=== PATIENT | female | born 1940 | race Caucasian/White ===

== ENCOUNTER 2016-12-06 09:16 | Inpatient (IN) ==
[2016-12-06] MEDS ORDERED: *HR* Heparin 10,000 UNIT/10 ML VIAL ONE (10:20)
[2016-12-06] MEDS ORDERED: Nitroglycerin 1,000 MCG/10 ML VIAL IV ONE (10:20)
[2016-12-06] MEDS ORDERED: Heparin 1,000 UNITS/500 mL NS 0 ML ONE (10:20)
[2016-12-06] MEDS: 0.9 % Sodium Chloride 1,000 ML IVC SCH ×3 (10:33→16:54)
[2016-12-06 10:39] LABS: INR 1.1; Prothrombin Time 11.8 Seconds (9.4-12.1)
[2016-12-06] MEDS ORDERED: Heparin 1,000 UNITS/500 mL NS 500 ML ONE (10:50)
[2016-12-06] MEDS ORDERED: 0.9 % Sodium Chloride 1,000 ML ONE (10:50)
[2016-12-06] MEDS ORDERED: *HR* FentaNYL (PF) 100 MCG/2 ML VIAL ONE (10:59)
[2016-12-06] MEDS ORDERED: *HR* Midazolam HCl 2 MG/2 ML VIAL ONE (10:59)
--- NOTE | 2016-12-06 11:00 | Pre-Sedation Evaluation ---
Pre-sedation evaluation - Pre-sedation checklist Date of procedure: 12/06/16 Procedure: [facility] Recent Vitals: Last Vital Signs Temp 98.6 F 12/06/16 09:44 Pulse 71 12/06/16 09:44 Resp 16 12/06/16 09:44 BP 151/93 12/06/16 09:44 Pulse Ox 96 12/06/16 09:44 H&P (including ROS) documented in medical record: Yes Previous reaction to sedatives/anesthetics: No Dietary Status: NPO after Midnight Airway Assessment: Patient can open mouth completely, TMJ function normal, Micrognathia (under-bite, receding chin) absent, Neck with adequate range of motion Dentition: No loose teeth or bridges Possible difficult airway: No ASA Classification *see protocol: CLASS II-Mild systemic disease Plan of Care: Pt appropriate candidate for procedure/moderate/conscious sedation , Risks/benefits of procedure/sedation discussed w/ patient/family
--- NOTE | 2016-12-06 11:01 | History & Physical Report ---
Date of Encounter: 12/06/16 Time of Encounter: 11:00 24 Hour HP Update - Instructions Instructions: If the History and Physical is less than 30 days old and was completed prior to A.M. admission and or procedure and has NOT been updated on calendar day of procedure please complete this update prior to performing procedure. - Update Patient reports changes in Medical Condition: No Changes in examination, assessment, or condition: No Changes in Medication: No Preop tests/diagnostics Reviewed: Yes Surgery Remains Indicated: Yes Consent for Planned Operative Procedure(s) Verified: Yes - Pre-Operative Checklist Preoperative Checklist Indicated: No Prophylactic Antibiotic Ordered: No Home Medications Include Beta Anuradha: Yes Beta Anuradha Taken Today (Day of Surgery): Yes Beta Anuradha Taken Yesterday (Day Prior to Surgery): Yes Is VTE Prophylaxis Indicated?: NO
[2016-12-06] MEDS ORDERED: Nitroglycerin 0.4 MG TAB.SUBL SL PRN (12:01)
[2016-12-06] MEDS ORDERED: Ipratropium/Albuterol Neb 3 ML IH PRN (12:01)
[2016-12-06] MEDS ORDERED: D5% in Water 1,000 ML IVC PRN (12:04)
[2016-12-06] MEDS ORDERED: *HR* Dextrose 50 % in Water (Syg) 50 ML SYRINGE IVP PRN (12:04)
[2016-12-06] MEDS ORDERED: Dextrose Gel 15 GM PO PRN ×2 (12:04)
--- NOTE | 2016-12-06 14:01 | Cardiothoracic Consult Note ---
Date of Encounter: 12/06/16 Time of Encounter: 13:55 Assessment and Plan (1) CAD (coronary artery disease) Current Visit: No Status: Chronic The patient is a type II diabetic, hypertensive lady with known CAD, hypercholesterolemia, CKD, type IIIa, and chronic atrial fibrillation. Her cardiac history dates back to 2010 at which time she underwent LAD stent placement. She did well until July 2016 which began experiencing exertional, nonradiating substernal chest pain which has progressed significantly in both frequency and severity. Currently she has pain 2 or more times each day. The pain is alleviated with sublingual nitroglycerin; however, it takes up to 1 hour for the symptoms to resolve. She underwent a transthoracic echocardiogram which showed an LVEF 60-65% with severe pulmonary hypertension (RVSP greater than 80 mmHg). She underwent cardiac catheterization today and was found to have severe three-vessel CAD and an LVEF 60%. Most of these lesions are 90% or greater. With her severe pulmonary hypertension patient is not a candidate for CABG at [facility]. She will require transfer to a tertiary hospital with the capability of handling patients with severe pulmonary hypertension. The assessment and plan as outlined above was discussed with the patient and/or family members who expressed understanding and agreement. All questions were answered. Qualifiers: Coronary Disease-Associated Artery/Lesion type: viejas artery [place] vs. transplanted heart: viejas heart Associated angina: without angina Qualified Code(s): I25.10 - Atherosclerotic heart disease of viejas coronary artery without angina pectoris - History of Present Illness Consult date: 12/06/16 Requesting physician: Aimee Pyle Consult reason: CABG evaluation. Chief complaint: Exertional substernal chest pain. History of present illness: Ms. Renae is a 76 year old type II diabetic, hypertensive lady with known CAD, hypercholesterolemia, and chronic kidney disease, Stage IIIA. The patient was being evaluated for temporal artery biopsy and mentioned that she had exertional substernal chest pain for 3-4 months. Her cardiac history dates back to 2010 at which time she underwent percutaneous catheter intervention and LAD stent placement. She did well until July 2016 when she began noticing exertional , nonradiating substernal chest pain. The pain subsequently migrated to her left precordial region and for the last 2 weeks has been occurring several times each day. The pain occurs with both activity as well as at rest. She has not been awakened from sleep with the substernal chest pain. She has associated shortness of breath, but denies any diaphoresis, dizziness, heart palpitations, or syncope. The patient underwent a transthoracic echocardiogram which revealed an LVEF 55- 60% with normal LV size and function. She had a severely dilated left atrium, moderately dilated right atrium, moderate tricuspid regurgitation, and severe pulmonary hypertension with an estimated RVSP greater than 80 mmHg. The nuclear stress test revealed an LVEF 70% with reversible defects in the anterior and inferolateral wilson. Cardiac catheterization performed today revealed severe 3 vessel CAD and LVEF 50%. In particular, patient has a 25-30% distal left main lesion, a 90% mid LAD lesion, a 95% distal LAD lesion, a 90% proximal D1 lesion , a 90% proximal D2 lesion, a 90% proximal ramus lesion, a small nondominant LCx with diffuse 90-99% lesions in both the main artery and the OM branches, and a 99% mid RPLB lesion. The patient has been recommended for urgent CABG. Past Med Surg Social Fam HX - Past Medical History Medical history: atrial fibrillation, coronary artery disease, diabetes, fibromyalgia, hyperlipidemia, hypertension, renal disease ( Stage IIIA), other ( Pulmonary hypertension, severe) Psychiatric history: no psych history - Past Surgical History Surgical History: angioplasty/stent, appendectomy, orthopedic, other (Left total knee replacement, right total knee replacement), thyroidectomy - Social History Smoking Status: Never smoker Smokeless Tobacco Status: No Alcohol use: none Drug use: none Occupational status: retired Current living situation: Home - Independent Activity Level: Independent ambulation Recent Out of Country Travel Within the Last 8 Weeks: No Exposure or Possible Exposure to Illness During Travel: No - Family History Mother Adopted: Yes Family Member Ethnicity: Non- Living Status: Hx Family Cardiac Disorders: Yes (HD) Father Adopted: Yes Brother Adopted: Yes Family Member Ethnicity: Non- Living Status: Hx Family Endocrine Disorder: Yes (DM) Sister Adopted: Yes Family Member Ethnicity: Non- Living Status: Hx Family Cancer: Yes (Female, Brain) Medications and Allergies Allopurinol [Zyloprim 100 MG] 100 mg PO DAILY 05/06/15 [History] Aspirin [Adult Low Dose Aspirin EC] 81 mg PO DAILY 05/06/15 [History] Insulin Glargine,Hum.rec.anlog [Lantus Solostar] 25 unit SQ QAM 05/06/15 [ History] Levothyroxine [Synthroid] 50 mcg PO QAM 05/06/15 [History] Losartan Potassium [Cozaar] 100 mg PO DAILY 05/06/15 [History] Nitroglycerin [Nitrostat] 0.4 mg SL Q5M PRN 05/06/15 [History] Warfarin [Coumadin] 5 mg PO SUMOTUWEFRSA 05/06/15 [History] Albuterol Sulfate [Ventolin Hfa] 2 puff IH Q4H PRN 01/07/16 [History] Ipratropium/Albuterol Neb [Duoneb] 3 ml IH Q6H PRN 01/07/16 [History] Insulin Glargine,Hum.rec.anlog [Lantus Solostar] 20 unit SQ QPM 10/09/16 [ History] Naproxen Sodium [Aleve] 220 mg PO Q12H PRN 10/09/16 [History] Torsemide 5 mg PO DAILY 10/09/16 [History] Warfarin [Coumadin] 2.5 mg PO TH 10/09/16 [History] Amlodipine Besylate 10 mg PO DAILY 12/06/16 [History] Atenolol 100 mg PO DAILY 12/06/16 [History] Atorvastatin [Lipitor] 40 mg PO HS 12/06/16 [History] Isosorbide MONOnitrate (24 HR) [Imdur] 30 mg PO DAILY 12/06/16 [History] Isosorbide MONOnitrate (24 HR) [Imdur] 60 mg PO DAILY 12/06/16 [History] 3 Allergy/AdvReac Type Severity Reaction Status Date / Time cephalexin [From Keflex] Allergy Hives Verified 11/15/16 10:18 levofloxacin [From Levaquin] Allergy Anaphylaxis Verified 11/15/16 10:18 promethazine AdvReac See Verified 11/15/16 10:18 Comments All Systems Review: A 10-system review of systems was performed and is negative for pertinent findings except as documented above in the HPI. Physical Examination General: Conversant, No Apparent Distress HEENT: Atraumatic, Normocephaly, Trachea midline Neck: No JVD, Normal carotid pulses Cardiac: Normal S1 and S2, No Murmur, Other (Irregular rate and rhythm (atrial fibrillation)) Lungs: Normal Breath Sounds, No Wheeze, Rales, Rhonchi Neuro: Alert and responsive, No focal deficits noted, Motor nerves intact, Sensory nerves intact Vascular: Normal capillary refill Abdomen: Soft, Non-tender Skin: No rashes noted on visualized skin Musculoskeletal: No Chest Wall Tenderness Extremities: No Clubbing, No Cyanosis, Other (2+ pitting esema LLE below the knee) Results Lab Results, Last 24 hours 12/06/16 10:30 INR 1.1 Consult Discharge Plan - Plan Referrals: Aimee Mcpherson, SECURITY FLEX OFFICER [Primary Care Provider] -
--- NOTE | 2016-12-06 14:40 | Invasive Diagnostic Lab Proc ---
Name: Mario Renae Date of Study: 12/06/2016 Date: 1940 Ht: 64.0in Medical Record#: [id number] Age: 76 Wt: 217.00lb Gender: Female BSA: 2.03 Order #: [id number] BMI: 37.25 Physicians Procedure Physician: Aimee Pyle MD, FACC Referring MD: Referring MD: Staff Name Position Time In Malina, Valarie RT (R) Recorder Antonia Richey RN Pre-Op Nurse Liz Morocho RN Monitor 11:07 AM Avery Fine RN Hand Crocheter 11:07 AM Roslyn Franco RN Monitor 11:07 AM Marilyn Quesada RN Hand Crocheter 11:07 AM Angela Newby RT (R) Scrub 11:07 AM Indications Indication Abnormal Test - Stress Procedures Performed Procedure L HRT ARTERY/VENTRICLE ANGIO Pre-Procedure Checklist Informed consent is complete signed and on chart. H&P is on chart. ID band is on and ID verified with patient. Patient NPO for procedure The procedure was described for the patient and questions were answered. Blood Pressure: 151/93 ECG is on chart. Rhythm: NSR Plan of Care Patient will tolerate the procedure without complications. Adequate level of comfort will be maintained. Hemodynamics will remain stable Patient will recover from procedure without complications. Respiratory function will be maintained. Cardiac rhythm will remain stable. Patient temperature will be maintained. Patient and/or family have verbalized understanding of the procedure. Patient Education Chief Complaint/Reason for Test: Cardiac Cath Developmental Category: Geriatric (65+ years) Developmentally Appropriate for Age: Yes Learning Barriers: None Education Needs: Procedure Education Method: Verbal Information Taught: Cardiac Cath Educational Evaluation: Able to repeat information Intravenous Access Time IV Size Location DC'd Fluid/Drip Rate Units RN 10:30 AM Started with 20g 1 1/4" Lt Arm 0.9NaCl 100 ml/hr Antonia Richey RN Allergies levofloxacin cephalexin promethazine NO KNOWN ALLERGIES Vital Signs Time BP (mmHg) HR (bpm) O2 Sat. RR (bpm) LOC 09:59 AM 151 / 93 71 96 % 16 5 = Fully awake and oriented or at pre-proc level 11:08 AM / % 5 = Fully awake and oriented or at pre-proc level 11:10 AM 160 / 124 84 98 % 12 11:15 AM 173 / 99 72 100 % 16 11:20 AM 121 / 78 67 96 % 13 11:25 AM 114 / 70 65 96 % 18 11:29 AM 121 / 67 59 96 % 14 11:47 AM 135 / 76 58 94 % 15 12:02 PM 134 / 80 62 93 % 16 5 = Fully awake and oriented or at pre-proc level 12:17 PM 128 / 82 61 94 % 12 4 = Oriented but drowsy 12:29 PM 139 / 79 56 95 % 12 4 = Oriented but drowsy 12:47 PM 144 / 75 56 98 % 12 5 = Fully awake and oriented or at pre-proc level 01:00 PM 149 / 79 61 96 % 12 5 = Fully awake and oriented or at pre-proc level 01:30 PM 140 / 77 70 95 % 16 5 = Fully awake and oriented or at pre-proc level 02:00 PM 163 / 96 74 95 % 16 5 = Fully awake and oriented or at pre-proc level 02:30 PM 106 / 71 73 95 % 16 5 = Fully awake and oriented or at pre-proc level Procedural Medications Time Medication Dose Units Method Given By 11:08 AM Oxygen 2 L/min nasal cannula Avery Fine RN 11:17 AM Versed 2 mg Intravenous Avery Fine RN 11:17 AM Fentanyl 50 mcg Intravenous Avery Fine RN 11:19 AM Lidocaine 2% 19 ml Subcutaneous Aimee Pyle MD, [facility] ASA Classification: CLASS II- Mild systemic disease (i.e. well-controlled diabetes, hypertension, asthma, cigarette smoking) Joseph Score Preprocedure Postprocedure Activity 2- Moves 4 extremities sustained head lift Activity 2- Moves 4 extremities sustained head lift Circulation 2- SBP +/= 20 points of pre-anesthetic level Circulation 2- SBP +/= 20 points of pre-anesthetic level Consciousness 2- Awake and alert oriented x 3 Consciousness 2- Awake and alert oriented x 3 O2 Saturation 2- Able to maintain O2 satruation of 92% on room air O2 Saturation 2- Able to maintain O2 satruation of 92% on room air Respiratory 2- Able to deep breathe and cough well Respiratory 2- Able to deep breathe and cough well Total Score 10 Total Score 10 Contrast Agent: Isovue Diagnostic Contrast: 53 ml Total Contrast: 53 ml Fluoro Dose: 169 mGy Procedure Log Time Note Enter By 11:07 AM CathStat 11:07 AM Pt arrived to kiln labourer 2 at 11:07 [facility] 11: AM Liz Morocho RN Position: Monitor Time in: : [facility] 11: AM Avery Fine RN Position: Hand Crocheter [facility] 11: AM Roslyn Franco RN Position: Monitor Time in: : [facility] 11:07 AM Marilyn Quesada RN Position: Hand Crocheter Time in: : [facility] 11: AM Angela Newby RT (R) Position: Scrub [facility] 11: AM Patient charges- Angio tray pack, Navilyst 3mm J, Pulse Oximetry and ACIST tubing and transducer [facility] 11: AM IV Supplies used: J loop Angio Cath. [facility] 11: AM Case Delayed No [facility] : AM Hair removed from procedure site in holding area using clippers. Bilateral groin prepped with Chloraprep by Marilyn Quesada RN, safety strap applied then patient was draped. Skin intact. [facility] : AM Mumtaz paged/called :. [facility] : AM Mumtaz responded and notified patient is ready 11: [facility] 11: AM Physician arrived : [facility] 11: AM Meet and greet completed [facility] :08 AM Sign in performed according to hospital policy. [facility] 11:08 AM Procedure start 11:08 [facility] 11:08 AM Case Start :08 AM Time: :08 Oxygen on at 2 L/min per nasal cannula by Avery Fine RN [facility] :08 AM Time: :08 Patient comfortable and pain free: Yes [facility] :08 AM Time: :08LOC: 5 = Fully awake and oriented or at pre-proc level [facility] 11:09 AM Vitals capture started with the following parameters, Patient=Adult, Interval=5 min, Initial Bkileefj=915 mmHg, Deflation Rate=5 mmHg, Cuff placed on Right Arm 11:10 AM HR=84 bpm, MVFA=541/124 mmhg, SpO2=98.0 %, Resp=12 B/min, Comment=SR 11:12 AM ASA Class CLASS II- Mild systemic disease (i.e. well-controlled diabetes, hypertension, asthma, cigarette smoking) [facility] 11:13 AM Recorded ECG: HR=70 Condition=Condition 1 11:15 AM HR=72 bpm, HKTO=205/99 mmhg, IgS6=322.0 %, Resp=16 B/min, Comment=SR 11:17 AM Time: : Versed 2 mg Intravenous [facility] by [facility]very Fine [facility] AM Time: : Fentanyl 50 mcg Intravenous Given by Avery Fine [facility] 11:17 AM Time out performed according to hospital policy [facility] 11:19 AM Pressure channel 1 zeroed. 11:19 AM Time: : 19 ml Lidocaine 2% to right groin Subcutaneous Given by Aimee Pyle MD, [facility] 11:19 AM Access obtained by percutaneous puncture. 5Fr 10cm Terumo Alton sheath placed in right Femoral artery. [id number] [facility] 11:19 AM 0.035 145cm Navilyst 3mmJ wire [id number] [facility] 11:19 AM 5Fr FL 4 catheter inserted over the wire [facility] 11:20 AM HR=67 bpm, RJTU=213/78 mmhg, SpO2=96.0 %, Resp=13 B/min, Comment=SR 11:20 AM LCA angiography performed in multiple views. [facility] 11:21 AM Recorded Pressure: Ao, HR=69, Condition=Condition 1 (Aorta) Ao 154/100/124 11:21 AM Recorded Pressure: Ao, HR=70, Condition=Condition 1 (Aorta) Ao 147/106/125 11:22 AM Catheter removed [facility] 11:23 AM 5Fr FR 4 catheter inserted over the wire [facility] 11:23 AM Recorded Pressure: Ao, HR=68, Condition=Condition 1 (Aorta) Ao 134/89/108 11:23 AM Recorded Pressure: Ao, HR=73, Condition=Condition 1 (Aorta) Ao 143/102/121 11:24 AM RCA angiography performed in multiple views. [facility] 11:24 AM Catheter removed [facility] 11:24 AM 5Fr Pigtail catheter inserted over the wire [facility] 11:25 AM HR=65 bpm, UNDF=079/70 mmhg, SpO2=96.0 %, Resp=18 B/min 11:25 AM Catheter selectively placed in left ventricle [facility] 11:25 AM Bolus angiogram of left Ventricle complete: 8 ml/sec for a total of 24 mls [facility] 11:25 AM Pressure channel 1 zeroed. 11:25 AM Recorded Pressure: LV, HR=72, Condition=Condition 1 (Left Ventricle) LV 97/8/8 11:26 AM Recorded Pressure: LV, Ao, HR=64, Condition=Condition 1 (Left Ventricle) LV 87/-5/11, (Aorta) Ao 94/51/72 11:27 AM Catheter removed [facility] 11:27 AM Wire removed [facility] 11:28 AM Bolus angiogram of right Femoral complete: 4 ml/sec for a total of 7 mls [facility] 11:28 AM Procedure completed at 11:28 [facility] 11:29 AM Sign out completed: Radiation Dose 168.95 mGy Fluoro Time: 1.0 Isovue 370 - 200ml contrast 53 ml given by Aimee Pyle MD, [facility]. Complications: NoneCardiac Rehab Consult needed: YesConfirmed administered medications: Yes [facility] 11:29 AM Post ECG NSR [facility] 11:29 AM Post Blood Pressure 114/70 [facility] 11:29 AM Information taught Cardiac Cath [facility] 11:29 AM Education needs Plan of Care, Procedure, and Responsibilities of Patient in Care [facility] 11:29 AM Learning barriers :None [facility] 11:29 AM Education Methods Verbal [facility] 11:29 AM Education evaluation Able to repeat information [facility] 11:29 AM Site status No bleeding/hematoma - Rt Groin as reported by Angela Newby RT (R) at 11:29 [facility] 11:29 AM HR=59 bpm, IKVT=625/67 mmhg, SpO2=96.0 %, Resp=14 B/min 11:30 AM Arterial sheath pulled, Mynx closure device used and was Successful [id number] S/N. [facility] 11:31 AM [facility] 11:31 AM Plavix, Effient or Brilinta given No [facility] 11:31 AM Report given to Bertha SAMUEL Pt taken to Holding room Room #3. 11:31 [email or web address] 11:32 AM Family placed in consult room. [facility] 11:32 AM Complications: None [facility] 11:32 AM Fluoro Time: 1 [facility] 11:32 AM Isovue 370 - 200ml contrast 53 ml given by Aimee Pyle MD, [facility]. [facility] 11:32 AM Radiation Dose 168.95 mGy [facility] 11:33 AM 11:32 Post Pulses Bilateral DP & PT 1+ [facility] 11:38 AM Coronary Dominance: right [facility] 11:39 AM Lesion found in Proximal RCA. Pre Stenosis: 40 Pre [place] Flow: [facility] 11:39 AM Lesion found in Mid RCA. Pre Stenosis: 40 Pre [place] Flow: [facility]ers 11:39 AM Lesion found in Distal RCA. Pre Stenosis: 40 Pre [place] Flow: ts[facility]ers 11:39 AM Lesion found in LMCA. Pre Stenosis: 20 Pre [place] Flow: tsoummers 11:39 AM Lesion found in Proximal LAD. Pre Stenosis: 50 Pre [place] Flow: tsoummers 11:39 AM Lesion found in Mid LAD. Pre Stenosis: 99 Pre [place] Flow: tsoummers 11:39 AM Lesion found in Distal LAD. Pre Stenosis: 95 Pre [place] Flow: tsoummers 11:40 AM Lesion found in 1st Diagonal. Pre Stenosis: 70 Pre [place] Flow: tsoummers 11:40 AM Lesion found in 2nd Diagonal. Pre Stenosis: 90 Pre [place] Flow: tsoummers 11:40 AM Lesion found in Proximal Circumflex. Pre Stenosis: 80 Pre [place] Flow: tsoummers 11:40 AM Lesion found in Mid Circumflex. Pre Stenosis: 99 Pre [place] Flow: tsoummers 11:40 AM Lesion found in Distal Circumflex. Pre Stenosis: 99 Pre [place] Flow: tsoummers 11:41 AM Lesion found in 1st Marginal. Pre Stenosis: 99 Pre [place] Flow: tsoummers 11:41 AM Lesion found in Right PDA. Pre Stenosis: 30 Pre [place] Flow: tsoummers 11:41 AM Lesion found in 1st RPL. Pre Stenosis: 99 Pre [place] Flow: tsoummers 11:41 AM Lesion found in Ramus. Pre Stenosis: 99 Pre [place] Flow: tsoummers 11:41 AM Left Main Coronary Artery with 20% stenosis [facility] 11:42 AM Proximal Left Anterior Descending Coronary Artery with 50% stenosis. ts[facility]ers 11:42 AM Mid/Distal Left Anterior Descending Coronary Artery and diagonal branches with 99% stenosis. tsoummers 11:42 AM Circumflex, Obtuse Marginal, Left Posterior Descending, and Left Posterolateral Coronary Arteries with 99 % stenosis. tsoummers 11:42 AM Right Coronary, Right Posterior Descending Arteries with Right Posterolateral and Acute Marginal branches with 40 % stenosis. tsoummers 11:42 AM Ramus with 99% stenosis. tsoummers 11:45 AM Patient out of room: 11:45 [facility]ouers 12:03 PM Pt resting comfortably, no complaints of pain. Family at bedside. dspellshelby 01:11 PM Pt resting comfortably, eating lunch, family at the bedside. dspellshelby 01:[address] sanchez in to see patient mprater 02:00 PM report called to Elizabeth on 2N mprater 02:30 PM patient transferred to 2N mprater Complications Complication None Hemodynamics Pressures Site Systolic/A Wave Diastolic/V Wave Mean AO 154 100 124 AO 147 106 125 AO 134 89 108 AO 143 102 121 LV 97 8 8 LV 87 -5 11 AO 94 51 72 Post Procedure Information Blood Pressure: 114/70 mmHg Rhythm: NSR Post procedural instructions were given Closure Device Time Device Success/Fail 12/06/2016 11:30:00 AM MynxGrip Successful Site Checks Time Location Status Staff Sheath In? Note 11:29 AM Rt Groin No bleeding/hematoma Angela Newby RT (R) 11:47 AM Rt Groin No bleeding/ No Hematoma Sunday Arrieta RN 12:02 PM Rt Groin No bleeding/ No Hematoma Valarie Radford RT (R) 12:17 PM Rt Groin No bleeding/ No Hematoma Valarie Radford RT (R) 12:29 PM Rt Groin No bleeding/ No Hematoma Valarie Radford RT (R) 12:46 PM Rt Groin No bleeding/ No Hematoma Valarie Radford RT (R) 01:00 PM Rt Groin No bleeding/ No Hematoma Valarie Radford RT (R) 01:30 PM Rt Groin No bleeding/ No Hematoma Antonia Richey RN 02:00 PM Rt Groin No bleeding/ No Hematoma Kaiden, Antonia D RN 02:30 PM Rt Groin No bleeding/ No Hematoma Antonia Richey RN Pulses Time Site Pre-Procedure Post-Procedure Note 12/06/2016 9:59:00 AM Bilateral radial 1+ 12/06/2016 10:31:00 AM Bilateral DP & PT 1+ 11:32:00 AM Bilateral DP & PT 1+ 12/06/2016 11:47:00 AM Bilateral DP & PT 1+ 12/06/2016 12:30:00 PM Bilateral DP & PT 1+ 12/06/2016 1:00:00 PM Bilateral DP & PT 1+ 12/06/2016 2:00:00 PM Bilateral DP & PT 1+ 12/06/2016 2:30:00 PM Bilateral DP & PT 1+ Updated by Antonia Richey RN on 12/06/2016 2:35:21 PM Antonia Richey RN electronically signed on 12/06/2016 2:36:03 PM with status of Final
[2016-12-06] MEDS: Nitroglycerin 1 INCH/GM PACKET TP SCH (16:14)
[2016-12-06] MEDS ORDERED: *HR* Heparin 5,000 UNIT/ML VIAL IVP PRN ×2 (16:18)
[2016-12-06] MEDS ORDERED: *HR* Heparin 5,000 UNIT/ML VIAL IVP ONE (16:18)
--- NOTE | 2016-12-06 16:21 | Discharge Summary ---
Date of Encounter: 12/06/16 Time of Encounter: 16:20 - Discharge Diagnosis (1) CAD (coronary artery disease) Priority: Primary Status: Chronic Comments: Known history of CAD with recent abnormal stress test. Status post left heart catheterization today showing severe three-vessel CAD with recommendations for evaluation a CABG. Qualifiers: Coronary Disease-Associated Artery/Lesion type: [place] artery [place] vs. transplanted heart: [place] heart Associated angina: with unstable angina Qualified Code(s): I25.110 - Atherosclerotic heart disease of [place] coronary artery with unstable angina pectoris - Discharge Medications Home Medications: Albuterol Sulfate [Albuterol Inhaler] 2 puff IH Q4H PRN inhaler 12/06/16 [Rx] Allopurinol [Zyloprim 100 MG] 100 mg PO DAILY tablet 12/06/16 [Rx] Aspirin Enteric Coated [Aspirin EC] 81 mg PO DAILY tablet.dr 12/06/16 [Rx] Atenolol [Tenormin] 100 mg PO DAILY tablet 12/06/16 [Rx] Atorvastatin [Lipitor] 40 mg PO HS tablet 12/06/16 [Rx] Heparin 3,400 unit IVP Q6H PRN vial 12/06/16 [Rx] Heparin 6,900 unit IVP Q6HR PRN vial 12/06/16 [Rx] Insulin DETEMIR [Levemir] 20 unit SQ HS [id number] 12/06/16 [Rx] Insulin DETEMIR [Levemir] 25 unit SQ QAM [id number] 12/06/16 [Rx] Insulin LISPRO [HumaLOG] 0 units SQ TIDAC vial 12/06/16 [Rx] Ipratropium/Albuterol Neb [Duoneb] 3 ml IH Q6H PRN inhsol 12/06/16 [Rx] Isosorbide MONOnitrate (24 HR) [Imdur] 60 mg PO DAILY 12/06/16 [History] Levothyroxine [Synthroid] 50 mcg PO QAM tablet 12/06/16 [Rx] Nitroglycerin 0.4 mg SL Q5M PRN tab.subl 12/06/16 [Rx] Nitroglycerin 0.5 inch TP Q6HNTG packet 12/06/16 [Rx] Torsemide [Demadex] 5 mg PO DAILY tablet 12/06/16 [Rx] amLODIPine [Norvasc] 10 mg PO DAILY tablet 12/06/16 [Rx] Allergies/Adverse Reactions: 3 Allergy/AdvReac Type Severity Reaction Status Date / Time cephalexin [From Keflex] Allergy Hives Verified 11/15/16 10:18 levofloxacin [From Levaquin] Allergy Anaphylaxis Verified 11/15/16 10:18 promethazine AdvReac See Verified 11/15/16 10:18 Comments Procedures/tests Complete & Pending: Procedures Performed prior 72 hours Category Date Time Status CL Cardiac Catheterization [CL] Routine 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 Attendant 12/06/16 09:31 Completed ECG 12 lead ECG [ECG] AM 0600 Y 12/07/16 06:00 Ordered Date of admission: 12/06/16 Primary care physician: Aimee Mcpherson CNP Consults: 12/06/16 12:04 Consult to Cardiothoracic Surgery [CONS] Routine Consulting Provider: Cardiothoracic Surgery Melissa Reason for Consult: 3VCAD, eval for CABG Call Completed: Yes Discharging clinician: Ryan Ricketts Anticipated date of discharge: 12/06/16 (pending [facility] trasnfer for CABG) - Patient Status Disposition: Still a Patient Condition: Serious Functional capacity at discharge: bed bound (on bedrest) Overall status at discharge: patient is not back to baseline - Discharge Instructions Follow Up With: Aimee Mcpherson CNP [Primary Care Provider] - - Diet and Activity Diet: diabetic diet, low fat, low cholesterol, low salt diet - Hospital Course Hospital course: Ms. Renae is a 76 year old female with a relevant past medical history of CAD, DM 2, hypertension, hyperlipidemia, fibromyalgia, persistent atrial fibrillation on Coumadin therapy for anticoagulation. Patient with recent abnormal nuclear stress test showing small sized mild intensity reversible defect in the basal to mid inferior lateral segments suggestive of ischemia. Patient with exertional angina, dyspnea on exertion, increasing fatigue. Increased utilization of nitroglycerin. Preoperative evaluation for pending temporal artery biopsy. Underwent left heart catheterization today and found to have severe three-vessel CAD. CT surgery consulted with recommendations for transfer to tertiary center for CABG. Recent echo October 2016 showed EF 55-60 %, severely dilated left atrium, moderately dilated right atrium, indeterminate diastolic function, mild AR, mild MR, moderate TR, severe pulmonary hypertension with RVSP greater than 80 mmHg. Coumadin remains on hold. Started on heparin drip for anticoagulation for her atrial fibrillation. We'll hold ARB for possible CABG. Currently chest pain-free. Pending transfer to tertiary center for evaluation for CABG. Patient verbalized understanding and agreed with plan. All questions answered. Discussed and reviewed with Dr. Ivey. - Time Spent with Patient Total time spent providing and/or coordinating discharge services: Greater than 30 minutes Physical Examination Vital Signs, Last 4 Hours Pulse Resp BP Pulse Ox 12/06/16 14:52 76 18 166/106 98 General: Conversant, No Apparent Distress HEENT: Atraumatic, Normocephaly, Mucus Membranes Moist Neck: No JVD, Normal carotid pulses Cardiac: Reg Rate and Rhythm, Normal S1 and S2, No Murmur Lungs: Normal Breath Sounds, No Wheeze, Rales, Rhonchi Neuro: Alert and responsive, No focal deficits noted Abdomen: Soft, Non-Tender Skin: No rashes noted on visualized skin Musculoskeletal: No Chest Wall Tenderness Extremities: No Clubbing, No Cyanosis, No Edema, Normal Pulses - VTE Reasons for not Prescribing Prophylaxis: Not indicated-Anticoagulated or INR therapeutic
[2016-12-06] MEDS ORDERED: Heparin 25,000 UNIT/500 ML D5W 25,000 UNIT/500 ML MLS IVC SCH (16:30)
[2016-12-06 16:59] LABS: Hematocrit 38.9 % (35.3-44.9); Hemoglobin 13.2 g/dL (11.5-15.4); Mean Corpuscular HGB Conc 33.9 g/dL (31.6-35.5); Mean Corpuscular Hemoglobin 28.7 pg (28.0-33.3); Mean Corpuscular Volume 84.6 fL (83.0-100.0); Mean Platelet Volume 10.2 fL (9.4-12.4); Platelet Count 166 K/mcL (140-400); Red Cell Distribution Width 14.1 % (11.5-14.5)
[2016-12-06 17:09] LABS: INR 1.1; Prothrombin Time 12.2 Seconds (9.4-12.1)
[2016-12-06] MEDS: Insulin LISPRO 300 UNITS/3 ML VIAL SQ SCH (17:15)
[2016-12-06] MEDS ORDERED: Insulin DETEMIR 100 UNIT/ML X5UNITS SQ SCH (21:00)
[2016-12-07 01:42] LABS: Activated Partial Thrombo Time > 360.0 Seconds (26.0-36.0)
[2016-12-07 01:54] LABS: Heparin anti-factor XA UFH 1.11 IU/mL (0.30-0.70)
[2016-12-07] MEDS: 0.9 % Sodium Chloride 1,000 ML IVC SCH ×2 (02:52→11:16)
[2016-12-07] MEDS: Nitroglycerin 1 INCH/GM PACKET TP SCH ×2 (04:54→11:17)
[2016-12-07] MEDS: Insulin LISPRO 300 UNITS/3 ML VIAL SQ SCH ×2 (08:03→11:16)
--- NOTE | 2016-12-07 08:39 | Cardiology Progress Note ---
Date of Encounter: 12/07/16 Time of Encounter: 08:40 Assessment and Plan (1) CAD (coronary artery disease) Current Visit: No Status: Chronic Per Cardiology: Patient chest pain-free. Has nitroglycerin paste. On IV heparin drip. [facility] transfer center contacted and pending acceptance today for evaluation for CABG. Catheter film and echo report ready for transfer. All questions answered. Anticipate transfer today. Qualifiers: Coronary Disease-Associated Artery/Lesion type: [place] artery [place] vs. transplanted heart: [place] heart Associated angina: with unstable angina Qualified Code(s): I25.110 - Atherosclerotic heart disease of [place] coronary artery with unstable angina pectoris Discussion w patient/family: The assessment and plan as outlined above was discussed with the patient who expressed understanding and agreement. All questions were answered. Thank you for involving us in the care of your patient. Please call with any questions. Subjective Principal diagnosis: CAD Interval history: Patient denies any CP, SOB, Palps. Denies any R groin pain. Objective Vital Signs, Last 4 Hours Temp Pulse Resp BP Pulse Ox 12/07/16 08:17 97.7 F 74 18 157/101 97 12/07/16 04:45 50 General: Conversant, No Apparent Distress HEENT: Atraumatic, Normocephaly, Mucus Membranes Moist Neck: No JVD, Normal carotid pulses Cardiac: Reg Rate and Rhythm, Normal S1 and S2, No Murmur Lungs: Normal Breath Sounds, No Wheeze, Rales, Rhonchi Neuro: Alert and responsive, No focal deficits noted Abdomen: Soft, Non-Tender Skin: No rashes noted on visualized skin, Other (Right groin site dry and intact , no hematoma, no bleeding, no ecchymosis, right dorsal pedis and posterior tibial pulses 2+ palpable) Musculoskeletal: No Chest Wall Tenderness Extremities: No Clubbing, No Cyanosis, No Edema, Normal Pulses Results 12/06/16 16:32 Lab Results 12/06/16 12/06/16 12/06/16 10:30 16:32 16:32 WBC 7.9 Hgb 13.2 Hct 38.9 Plt Count 166 INR 1.1 1.1 APTT 37.0 H 12/07/16 00:36 WBC Hgb Hct Plt Count INR APTT > 360.0 H* D - Imaging and Cardiology Echo: report reviewed Cardiac cath: report reviewed - EKG Interpretation EKG results cardiology: other (A. fib on telemetry in the 60s to 70s) - VTE Reasons for not Prescribing Prophylaxis: Not indicated-Anticoagulated or INR therapeutic Consult Discharge Plan - Plan Referrals: Aimee Mcpherson CNP [Primary Care Provider] -
[2016-12-07] MEDS ORDERED: Aspirin Enteric Coated 81 MG Tablet PO SCH (09:00)
[2016-12-07] MEDS ORDERED: Insulin DETEMIR 100 UNIT/ML X5UNITS SQ SCH (09:00)
[2016-12-07] MEDS ORDERED: Torsemide 20 MG TABLET PO SCH (09:00)
[2016-12-07] MEDS ORDERED: amLODIPine 5 MG TABLET PO SCH (09:00)
[2016-12-07 11:05] LABS: Heparin anti-factor XA UFH 0.69 IU/mL (0.30-0.70)
[2016-12-07 11:07] VITALS: BP 161/79
== END 2016-12-07 12:18 | disposition short-term general hospital (02) | DRG 287 ==
LOC: INVDIALAB 09:16 → 2NNU 13:57
PROVIDERS: ADMIT Internal Medicine Interventional Cardiology; ATTEND Internal Medicine Interventional Cardiology

== ENCOUNTER 2018-10-01 04:09 | Observation (INO) ==
[2018-10-01] MEDS ORDERED: Aspirin 81 MG TAB.CHEW PO ONE (04:57)
--- NOTE | 2018-10-01 05:00 | Emergency Department Note ---
Disposition Clinical Impression: Coagulopathy Chest pain Qualifiers: Chest pain type: other chest pain Qualified Code(s): R07.89 - Other chest pain Disposition: Still a Patient Condition: Fair Referrals: Aimee Mcpherson CNP [Primary Care Provider] - Time of Disposition: 06:25 Chest Pain HPI - General Chief Complaint: ED Chest Pain Stated Complaint: CP Time Seen by Provider: 10/01/18 04:18 Source: patient, family Mode of arrival: ambulatory Limitations: no limitations Vital Signs Reviewed: Yes Nursing Notes Reviewed: Yes - History of Present Illness HPI Narrative: 78-year-old playing of chest pain presents to the emergency department. She states the pain is heavy but hurts worse when she takes a deep breath. She also states that does go through to her back. She does have a significant history of coronary artery disease with also a coronary bypass graft 3 vessels. The heart catheter in 09/07/2018 which demonstrated significant stenosis in her [place] vessels however the 3 vessels that were bypassed are patent and open. The MARTINEZ is also patent. However, her [place] vessels do show significant stenosis she denies any shortness of breath but it does hurt to take a deep breath. She artery took baby aspirin this morning. She took one extra 1 around 2 AM and 2 prior to that. Pt complaint: chest pain Time: 02:00 Duration: constant Pain Location: substernal Severity: moderate Severity scale (1-10): 7 Quality: sharp, dull Pain Radiation: back Improves with: nitroglycerin Worsens with: inspiration Associated symptoms: Denies: nausea, vomiting, diaphoresis, dyspnea, sense of impending doom, fever, cough Treatments prior to arrival chest pain: aspirin - Related Data On Oral Contraceptives: No Home Medications Medication Instructions Recorded Confirmed Isosorbide MONOnitrate (24 HR) 60 mg PO DAILY 12/06/16 10/01/18 [Imdur] Losartan Potassium [Cozaar] 100 mg PO DAILY 01/24/17 10/01/18 Metoprolol [Lopressor] 50 mg PO BID 01/24/17 10/01/18 Aspirin Enteric Coated [Aspirin EC] 2 tab PO DAILY 09/07/18 10/01/18 Cholecalciferol (Vitamin D3) 5,000 unit PO DAILY 09/07/18 10/01/18 [Vitamin D3] Insulin DETEMIR [Levemir] 23 unit SQ BID 09/07/18 10/01/18 Torsemide [Demadex] 10 mg PO DAILY 09/07/18 10/01/18 Warfarin [Coumadin] 5 mg PO AD 09/07/18 10/01/18 Previous Rx's Medication Instructions Recorded Albuterol Sulfate [Proventil 2 puff IH Q4H PRN inhaler 12/06/16 Inhaler] Allopurinol [Zyloprim 100 MG] 100 mg PO DAILY tablet 12/06/16 Atenolol [Tenormin] 100 mg PO DAILY tablet 12/06/16 Atorvastatin [Lipitor] 40 mg PO HS tablet 12/06/16 Levothyroxine [Synthroid] 50 mcg PO QAM tablet 12/06/16 Nitroglycerin 0.4 mg SL Q5M PRN tab.subl 12/06/16 amLODIPine [Norvasc] 10 mg PO DAILY tablet 12/06/16 Ranolazine [Ranexa] 500 mg PO BID #60 tab.er.12h 09/07/18 Allergies Allergy/AdvReac Type Severity Reaction Status Date / Time cephalexin [From Keflex] Allergy Hives Verified 10/01/18 04:47 levofloxacin [From Levaquin] Allergy Anaphylaxis Verified 10/01/18 04:47 promethazine AdvReac See Verified 10/01/18 04:47 Comments All systems ED: reviewed and negative except as stated. Constitutional: Denies: fever, chills, weakness, weight change Eyes: Denies: eye pain, eye discharge, vision change ENT ED: Denies: ear pain, throat pain, dental pain, hearing loss, epistaxis, congestion, dysphagia Cardiovascular: Reports: chest pain. Denies: palpitations, dyspnea on exertion, edema, syncope Respiratory: Reports: dyspnea. Denies: cough, wheezes, hemoptysis, stridor Gastrointestinal: Denies: abdominal pain, nausea, vomiting, diarrhea, constipation, hematemesis, melena, hematochezia Genitourinary: Denies: dysuria, frequency, hematuria, discharge Musculoskeletal: Denies: back pain, neck pain, arthralgia, myalgia Integumentary: Denies: rash, abrasion, lesions Neurological: Denies: headache, weakness, numbness, paresthesias, confusion, abnormal gait, vertigo Psychiatric: Denies: anxiety, depression, suicidal thoughts, homicidal thoughts, auditory hallucinations, visual hallucinations Endocrine: Denies: fatigue Hematological/Lymphatic: Denies: easy bleeding, easy bruising Allergic/Immunologic: Denies: facial swelling, urticaria Chest Pain PMH - Past Medical History Medical history: Reports: atrial fibrillation, diabetes, fibromyalgia, hyperlipidemia, hypertension, thyroid disease Surgical history: Reports: angioplasty/stent, appendectomy, orthopedic, other, thyroidectomy Psychiatric history: Reports: no psych history STUDENT DEVELOPMENT SPECIALIST history: Reports: no STUDENT DEVELOPMENT SPECIALIST history - Social History Smoking Status: Never smoker Alcohol use: Reports: none Drug use: Reports: none Physical Exam - General Limitations: no limitations General appearance: alert - Head Head exam: atraumatic, normocephalic, normal inspection - Eye Eye exam: Present: normal appearance, PERRL, EOMI - ENT ENT exam: normal exam, normal oropharynx, mucous membranes moist - Neck Neck exam: Present: normal inspection, full ROM, trachea midline. Absent: tenderness - Chest Chest inspection: Present: normal inspection, symmetric chest wall rise. Absent: tenderness - Respiratory Respiratory exam: Present: normal lung sounds bilaterally, other (But does hurt to take a deep breath). Absent: respiratory distress, wheezes - Cardiovascular Cardiovascular exam: Present: regular rate, normal rhythm, normal heart sounds - Abdominal Exam Abdominal exam: Present: soft, Non-Tender, normal bowel sounds. Absent: te nderness, distention, guarding, rebound, rigidity - Extremities Exam Extremities exam: Present: normal inspection, full ROM, normal capillary refill. Absent: tenderness, pedal edema - Back Exam Back exam: Present: normal inspection, full ROM. Absent: tenderness, CVA tenderness (R), CVA tenderness (L) - Neurological Exam Neurological exam: Present: alert, oriented X3, CN II-XII intact - Psychiatric Psychiatric exam: Present: normal affect, normal mood - Skin Skin exam: Present: warm, dry, intact, normal color Course Course Narrative: Patient was placed in examination room. History of physical was obtained. Patient did have an EKG upon arrival. Although there are minimal ST changes in V1 and V2 these are unchanged from previous EKGs. Patient has undertaken one aspirin this morning along with her usual 2. However give 2 more aspirin. She has not missed any doses of her new medications. She is currently taken Coumadin and Ranexa. I will give her nitroglycerin sublingual. And then reevaluate. However, with her pain in her chest going into her back she states this is a little different than her normal pain that she has. She has not had any recent hospitalizations or any longer since travel or car rides. Going to obtain a CTA of her chest to further evaluate for pulmonary embolism/dissection - Reevaluation(s) Reevaluation #1: Patient is feeling better after nitroglycerin. Time: 05:05 Reevaluation #2: Patient was pain-free after 2 nitroglycerin. And no longer hurts for her to take a deep breath. Time: 06:24 - Consultations Consultation #1: I contacted Dr. Linder and he would like forced to call back once the CT scan has been resulted. But he finds no reason not to admit her. For chest pain rule out. Time: 06:25 Vital Signs Temperature 98.7 F 10/01/18 04:26 Pulse Rate 81 10/01/18 04:26 Respiratory Rate 20 10/01/18 04:26 Blood Pressure 144/59 10/01/18 04:26 O2 Sat by Pulse Oximetry 95 10/01/18 04:26 Temperature 98.7 F 10/01/18 04:26 Pulse Rate 84 10/01/18 06:03 Respiratory Rate 20 10/01/18 06:03 Blood Pressure 116/56 10/01/18 06:03 O2 Sat by Pulse Oximetry 97 10/01/18 06:03 Oxygen Delivery Oxygen Delivery Room Air Chest Pain - MDM Narrative Medical decision making narrative: Patient will be signed out to Dr. Singh and he will contact the hospitalist for admission. - Medical Records Medical records reviewed: Yes I reviewed the patient's medical records. - Lab Data Lab results reviewed: Yes I reviewed the patient's lab results. Result diagrams: 10/01/18 04:59 10/01/18 04:59 Lab Results 10/01/18 10/01/18 10/01/18 Range/Units 04:59 04:59 04:59 WBC 12.7 H (4.3-11.1) K/mcL RBC 4.53 (3.82-4.97) M/mcL Hgb 12.8 (11.5-15.4) g/dL Hct 38.3 (35.3-44.9) % MCV 84.5 (83.0-100.0) fL MCH 28.3 (28.0-33.3) pg MCHC 33.4 (31.6-35.5) g/dL RDW 13.9 (11.5-14.5) % Plt Count 188 (140-400) K/mcL MPV 9.9 (9.4-12.4) fL Immature Gran % 0.4 (0-4) % Seg Neutrophils % 81.6 % Lymphocytes % 7.9 % Monocytes % 9.0 % Eosinophils % 0.6 % Basophils % 0.5 % Neutrophils # 10.4 H (1.6-8.9) K/mcL Lymphocytes # 1.0 (0.6-4.6) K/mcL Monocytes # 1.1 (0.0-1.3) K/mcL Eosinophils # 0.1 (0.0-0.6) K/mcL Basophils # 0.1 (0.0-0.2) K/mcL PT 51.5 H* (9.4-12.1) Seconds INR 4.5 H* APTT 56.4 H (26.0-36.0) Seconds Sodium (136-145) mEq/L Potassium (3.5-5.1) mEq/L Chloride (98-107) mEq/L Carbon Dioxide (23-29) mEq/L BUN (8-23) mg/dL Creatinine (0.60-1.20) mg/dL Est GFR ( Amer) (> 60) Est GFR (Non-Af Amer) (> 60) BUN/Creatinine Ratio (6-26) Glucose (70-105) mg/dL Calculated Osmolality (280-300) Calcium (8.6-10.3) mg/dL Total Bilirubin (0.3-1.0) mg/dL Direct Bilirubin (0.0-0.2) mg/dL Indirect Bilirubin (0.0-1.2) mg/dL AST (13-39) Units/L ALT (7-52) Units/L Alkaline Phosphatase (34-104) Units/L Troponin I (< 0.04) ng/mL B-Natriuretic Peptide 165 H (Less than 100) pg/mL Serum Total Protein (6.4-8.9) g/dL Albumin (3.5-5.7) g/dL Globulin (2.4-3.5) g/dL Albumin/Globulin Ratio (1.1-2.2) Lipase (11-82) Units/L 10/01/18 Range/Units 04:59 WBC (4.3-11.1) K/mcL RBC (3.82-4.97) M/mcL Hgb (11.5-15.4) g/dL Hct (35.3-44.9) % MCV (83.0-100.0) fL MCH (28.0-33.3) pg MCHC (31.6-35.5) g/dL RDW (11.5-14.5) % Plt Count (140-400) K/mcL MPV (9.4-12.4) fL Immature Gran % (0-4) % Seg Neutrophils % % Lymphocytes % % Monocytes % % Eosinophils % % Basophils % % Neutrophils # (1.6-8.9) K/mcL Lymphocytes # (0.6-4.6) K/mcL Monocytes # (0.0-1.3) K/mcL Eosinophils # (0.0-0.6) K/mcL Basophils # (0.0-0.2) K/mcL PT (9.4-12.1) Seconds INR APTT (26.0-36.0) Seconds Sodium 137 (136-145) mEq/L Potassium 3.6 (3.5-5.1) mEq/L Chloride 103 (98-107) mEq/L Carbon Dioxide 20 L (23-29) mEq/L BUN 14 (8-23) mg/dL Creatinine 0.76 (0.60-1.20) mg/dL Est GFR ( Amer) > 60 (> 60) Est GFR (Non-Af Amer) > 60 (> 60) BUN/Creatinine Ratio 18 (6-26) Glucose 169 H (70-105) mg/dL Calculated Osmolality 288 (280-300) Calcium 10.0 (8.6-10.3) mg/dL Total Bilirubin 1.1 H (0.3-1.0) mg/dL Direct Bilirubin 0.3 H (0.0-0.2) mg/dL Indirect Bilirubin 0.8 (0.0-1.2) mg/dL AST 15 (13-39) Units/L ALT 10 (7-52) Units/L Alkaline Phosphatase 99 (34-104) Units/L Troponin I < 0.03 (< 0.04) ng/mL B-Natriuretic Peptide (Less than 100) pg/mL Serum Total Protein 7.0 (6.4-8.9) g/dL Albumin 4.0 (3.5-5.7) g/dL Globulin 3.0 (2.4-3.5) g/dL Albumin/Globulin Ratio 1.3 (1.1-2.2) Lipase 19 (11-82) Units/L - Radiology Data Radiology results reviewed: Yes I reviewed the patient's radiology results. EXAMINATION: ONE XRAY VIEW OF THE CHEST 10/01/2018 5:26 am COMPARISON: 10/09/2016 HISTORY: ORDERING SYSTEM PROVIDED HISTORY: chest pain FINDINGS: Stable cardiomegaly and calcification aortic knob. Interval postsurgical changes of CABG. No consolidation, sizable effusion or pneumothorax. Osseous structures grossly intact. XR/XR chest 1V portable IMPRESSION: No acute process. D/ / Ej Carreon MD / Ej Carreon MD Interpreting Provider: Ej Carreon MD - EKG Data EKG attestation: Yes I reviewed and interpreted this EKG. EKG results narrative: EKG is reviewed and read by me shows a H of fibrillation with a heart rate of 85 bpm, normal axis, no acute ST elevations however there are chronic elevations in V1 and V2. No significant acute changes from 10/19/2016. EKG #2 taken at 0432 Reviewed interpreted by me. Shows a heart rate of 81 with atrial fibrillation with controlled ventricular rate. Normal axis, no acute ST elevations or depressions to suggest infarction or ischemia. Heart Score - Score History: Moderately Suspicious EKG: Normal Age: Greater than 65 Risk Factors: Equal/Greater than 3 risk factor or history of atherosclerotic disease Troponin: Less than normal limit HEART Score Total: 5 Critical Care Time Critical Care Time: Yes Total Critical Care Time: 30 Attestation: The high probability of a clinically significant, sudden or life threatening deterioration of the patient's condition required my full and direct attention, intervention and personal management.
[2018-10-01 05:14] LABS: Basophils # 0.1 K/mcL (0.0-0.2); Basophils % 0.5 %; Eosinophils # 0.1 K/mcL (0.0-0.6); Eosinophils % 0.6 %; Hematocrit 38.3 % (35.3-44.9); Hemoglobin 12.8 g/dL (11.5-15.4); Immature Granulocytes % 0.4 % (0-4); Lymphocytes % 7.9 %; Mean Corpuscular HGB Conc 33.4 g/dL (31.6-35.5); Mean Corpuscular Hemoglobin 28.3 pg (28.0-33.3); Mean Corpuscular Volume 84.5 fL (83.0-100.0); Mean Platelet Volume 9.9 fL (9.4-12.4); Monocytes # 1.1 K/mcL (0.0-1.3); Neutrophils # 10.4 K/mcL (1.6-8.9); Platelet Count 188 K/mcL (140-400); Red Blood Count 4.53 M/mcL (3.82-4.97); Red Cell Distribution Width 13.9 % (11.5-14.5); Segmented Neutrophils % 81.6 %; White Blood Count 12.7 K/mcL (4.3-11.1)
[2018-10-01] MEDS: Nitroglycerin 0.4 MG TAB.SUBL SL SCH ×3 (05:15→06:04)
[2018-10-01 05:23] LABS: INR 4.5; Prothrombin Time 51.5 Seconds (9.4-12.1)
[2018-10-01 05:24] LABS: Activated Partial Thrombo Time 56.4 Seconds (26.0-36.0)
[2018-10-01 05:32] LABS: Alanine Aminotransferase 10 Units/L (7-52); Albumin/Globulin Ratio 1.3 (1.1-2.2); Alkaline Phosphatase 99 Units/L (34-104); Aspartate Amino Transferase 15 Units/L (13-39); BUN/Creatinine Ratio 18 (6-26); Bilirubin,Direct 0.3 mg/dL (0.0-0.2); Bilirubin,Indirect 0.8 mg/dL (0.0-1.2); Bilirubin,Total 1.1 mg/dL (0.3-1.0); Blood Urea Nitrogen 14 mg/dL (8-23); Carbon Dioxide 20 mEq/L (23-29); Chloride 103 mEq/L (98-107); Glucose 169 mg/dL (70-105); Lipase 19 Units/L (11-82); Osmolality,Calculated 288 (280-300); Potassium 3.6 mEq/L (3.5-5.1); Sodium 137 mEq/L (136-145); Troponin I < 0.03 ng/mL (< 0.04); eGFR For African Americans > 60 (> 60); eGFR For Non-African Americans > 60 (> 60)
[2018-10-01] MEDS ORDERED: Isovue-370 500 ML BOTTLE IVP ONE (05:50)
--- NOTE | 2018-10-01 09:21 | Internal Med History&Physical ---
Date of Encounter: 10/01/18 Time of Encounter: 09:21 Internal Medicine - H&P: HPI Chief complaint: Chest pain History of present illness: Ms. Renae is a 78 year old female with a past medical history of atrial fibrillation, diabetes, fibromyalgia, hyperlipidemia, hypertension, thyroid disease presented to the hospital with chest pain, pressure in character, exacerbated by deep breath and was no alleviating factor, the patient stated that the pain is radiating to her back. The patient had extensive cardiac history status post coronary bypass graft and heart catheterization and September 2018 that revealed significant stenosis in her [place] vessels however the 3 ve ssels that were bypassed are patent and open. The patient was evaluated by the ER staff cardiac enzymes first set was was no significant abnormalities and EKG revealed ischemic ST-T wave changes. Her INR was super therapeutic, however there was still signs of bleeding, The patient was admitted for further evaluation Past Med Surg Social Fam HX - Past Medical History Medical history: atrial fibrillation, diabetes, fibromyalgia, hyperlipidemia, hypertension, thyroid disease Psychiatric history: no psych history - Past Surgical History Surgical History: angioplasty/stent, appendectomy, orthopedic, other, thyroidectomy Additional surgical history: bilateral knee replacements - Social History Smoking Status: Never smoker Smokeless Tobacco Status: No Alcohol use: none Drug use: none - Family History Mother Adopted: Yes Family Member Ethnicity: Non- Living Status: Hx Family Cardiac Disorders: Yes (HD) Father Adopted: Yes Brother Adopted: Yes Family Member Ethnicity: Non- Living Status: Hx Family Endocrine Disorder: Yes (DM) Sister Adopted: Yes Family Member Ethnicity: Non- Living Status: Hx Family Cancer: Yes (Female, Brain) Internal Medicine - H&P: Meds Allopurinol [Zyloprim 100 MG] 100 mg PO DAILY tablet 12/06/16 [Rx] Atorvastatin [Lipitor] 40 mg PO HS tablet 12/06/16 [Rx] Isosorbide MONOnitrate (24 HR) [Imdur] 60 mg PO DAILY 12/06/16 [History] Levothyroxine [Synthroid] 50 mcg PO QAM tablet 12/06/16 [Rx] Nitroglycerin 0.4 mg SL Q5M PRN tab.subl 12/06/16 [Rx] amLODIPine [Norvasc] 10 mg PO DAILY tablet 12/06/16 [Rx] Losartan Potassium [Cozaar] 100 mg PO DAILY 01/24/17 [History] Metoprolol [Lopressor] 50 mg PO BID 01/24/17 [History] Aspirin Enteric Coated [Aspirin EC] 2 tab PO DAILY 09/07/18 [History] Cholecalciferol (Vitamin D3) [Vitamin D3] 5,000 unit PO DAILY 09/07/18 [History] Ranolazine [Ranexa] 500 mg PO BID #60 tab.er.12h 09/07/18 [Rx] Torsemide [Demadex] 10 mg PO DAILY 09/07/18 [History] Warfarin [Coumadin] 5 mg PO SUTUTHSA 09/07/18 [History] Albuterol Sulfate [Proventil Inhaler] 2 puff IH Q4H PRN 10/01/18 [History] Insulin Glargine,Hum.rec.anlog [Lantus Solostar] 23 unit SQ BID 10/01/18 [History] Warfarin Sodium 2.5 mg PO MOWEFR 10/01/18 [History] Allergy/AdvReac Type Severity Reaction Status Date / Time cephalexin [From Keflex] Allergy Hives Verified 10/01/18 04:47 levofloxacin [From Levaquin] Allergy Anaphylaxis Verified 10/01/18 04:47 promethazine AdvReac See Verified 10/01/18 04:47 Comments All Systems PM: A 10-system review of systems was performed and is negative for pertinent findings except as documented above in the HPI. - Constitutional Vitals: Temp Pulse Resp BP Pulse Ox 99.5 F 69 17 145/75 94 10/01/18 09:01 10/01/18 09:01 10/01/18 09:01 10/01/18 09:01 10/01/18 09:01 General appearance: Present: A&O X 3 Exam: . - Neck Neck exam general surgery: Present: supple, trachea midline. Absent: lymphadenopathy - Cardiovascular Cardiovascular exam: Present: RRR, +S1, +S2. Absent: diastolic murmur, gallop, rubs, systolic murmur - GI/Abdominal GI/Abdominal exam: Present: normal bowel sounds, soft, no peritoneal signs. Absent: distended, tenderness - Extremities Exam Extremities exam: Present: warm, radial pulses palpable and symmetrical. Abs ent: calf tenderness, cyanotic, pedal edema Internal Med - H&P Results - Labs CBC & Chem 7: 10/02/18 00:26 10/02/18 00:26 Labs: Short CBC 10/01/18 Range/Units 04:59 WBC 12.7 H (4.3-11.1) K/mcL Hgb 12.8 (11.5-15.4) g/dL Hct 38.3 (35.3-44.9) % Plt Count 188 (140-400) K/mcL Neutrophils # 10.4 H (1.6-8.9) K/mcL BMP 10/01/18 04:59 Sodium 137 Potassium 3.6 Chloride 103 Carbon Dioxide 20 L BUN 14 Creatinine 0.76 Glucose 169 H Calcium 10.0 Cardiac Enzymes 10/01/18 Range/Units 04:59 Troponin I < 0.03 (< 0.04) ng/mL Liver Function 10/01/18 Range/Units 04:59 Total Bilirubin 1.1 H (0.3-1.0) mg/dL Direct Bilirubin 0.3 H (0.0-0.2) mg/dL AST 15 (13-39) Units/L ALT 10 (7-52) Units/L Alkaline Phosphatase 99 (34-104) Units/L Albumin 4.0 (3.5-5.7) g/dL - Impressions ITS Impressions Chest X-Ray 10/01/18 04:22 IMPRESSION: No acute process. D/ / Ej Carreon MD / Ej Carreon MD Interpreting Provider: Ej Carreon MD Chest CTA 10/01/18 05:50 IMPRESSION: No evidence of pulmonary embolism or acute pulmonary abnormality. Cardiomegaly noted with atherosclerotic vascular calcifications and previous median sternotomy. Other incidental findings include bibasilar atelectasis in the lungs and a small hiatal hernia. D/ / John Rivas MD / John Rivas MD Interpreting Provider: John Rivas MD - Assessment and Plan (1) Chest pain Status: Acute Assessment and plan: The patient had extensive cardiac history status post coronary bypass graft and heart catheterization and September 2018 that revealed significant stenosis in her [place] vessels however the 3 vessels that were bypassed are patent and open. The patient was evaluated by the ER staff cardiac enzymes first set was was no significant abnormalities and EKG revealed ischemic ST-T wave changes. Qualifiers: Chest pain type: other chest pain Qualified Code(s): R07.89 - Other chest pain; R07.8 - Other chest pain (2) Coagulopathy Status: Acute Assessment and plan: no evidence of bleeding, repeat INR. Hold Coumadin for now and consult pharmacy for further dosing. (3) Atrial fibrillation Status: Chronic Assessment and plan: Patient in chronic anticoagulation with warfarin, her INR is over therapeutic was holding for now will follow-up and INR. Qualifiers: Atrial fibrillation type: chronic Qualified Code(s): I48.2 - Chronic atrial fibrillation (4) CAD (coronary artery disease) Status: Chronic Assessment and plan: Continue home medication Qualifiers: Coronary Disease-Associated Artery/Lesion type: [place] artery [place] vs. transplanted heart: [place] heart Associated angina: with unstable angina Qualified Code(s): I25.110 - Atherosclerotic heart disease of [place] coronary artery with unstable angina pectoris (5) Diabetes Status: Chronic Assessment and plan: We will start the patient and insulin sliding scale with moderate coverage Qualifiers: Diabetes mellitus type: type 2 Diabetes mellitus continuous churn buttermaker insulin use: with continuous churn buttermaker use Diabetes mellitus complication status: without complication Qualified Code(s): E11.9 - Type 2 diabetes mellitus without complications; 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.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) use of insulin (6) HTN (hypertension) Status: Chronic Assessment and plan: We will continue home medication, continue to monitor blood pressure while inpatient and adjust regimen accordingly Qualifiers: Hypertension type: essential hypertension Qualified Code(s): I10 - Essential (primary) hypertension (7) Hyperlipidemia Status: Chronic Assessment and plan: We will continue home statin Qualifiers: Hyperlipidemia type: pure hypercholesterolemia Qualified Code(s): E78.00 - Pure hypercholesterolemia, unspecified; E78.0 - Pure hypercholesterolemia - Time Spent With Patient Total time spent is greater than 50% in coordination of care (as documented) at patient's floor/unit and/or counseling patient:
[2018-10-01] MEDS ORDERED: Naloxone 0.4 MG/ML INJ IVP PRN (10:45)
[2018-10-01] MEDS ORDERED: Ondansetron 4 MG/2 ML VIAL IVP PRN (10:45)
--- NOTE | 2018-10-01 11:42 | Electrocardiograph Report ---
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
[2018-10-01] MEDS ORDERED: Nitroglycerin 0.4 MG TAB.SUBL SL PRN (14:57)
[2018-10-01] MEDS ORDERED: Dextrose Gel 15 GM/37.5 ML TUBE PO PRN ×2 (16:59)
[2018-10-01] MEDS ORDERED: D5% in Water 1,000 ML IVC PRN (16:59)
[2018-10-01] MEDS ORDERED: *HR* Dextrose 50 % in Water (Syg) 50 ML SYRINGE IVP PRN (16:59)
[2018-10-01] MEDS ORDERED: Warfarin perPT PO PRN (18:00)
[2018-10-01 18:07] LABS: Prothrombin Time 59.8 Seconds (9.4-12.1)
[2018-10-01 18:08] LABS: INR 5.3
[2018-10-01 18:24] LABS: Estimated Average Glucose 177 mg/dl
[2018-10-01] MEDS ORDERED: Insulin LISPRO 300 UNITS/3 ML VIAL SQ SCH (21:00)
[2018-10-01] MEDS: Ranolazine 500 MG TAB.ER.12H PO SCH (21:35)
[2018-10-02 00:55] LABS: Basophils # 0.1 K/mcL (0.0-0.2); Basophils % 0.5 %; Eosinophils # 0.1 K/mcL (0.0-0.6); Hematocrit 36.1 % (35.3-44.9); Immature Granulocytes % 0.4 % (0-4); Lymphocytes # 1.7 K/mcL (0.6-4.6); Lymphocytes % 17.6 %; Mean Corpuscular HGB Conc 33.2 g/dL (31.6-35.5); Mean Corpuscular Volume 84.3 fL (83.0-100.0); Mean Platelet Volume 10.3 fL (9.4-12.4); Monocytes # 1.1 K/mcL (0.0-1.3); Monocytes % 11.3 %; Neutrophils # 6.8 K/mcL (1.6-8.9); Platelet Count 167 K/mcL (140-400); Red Blood Count 4.28 M/mcL (3.82-4.97); Red Cell Distribution Width 14.1 % (11.5-14.5); Segmented Neutrophils % 69.2 %; White Blood Count 9.8 K/mcL (4.3-11.1)
[2018-10-02 01:06] LABS: INR 4.9; Prothrombin Time 55.7 Seconds (9.4-12.1)
[2018-10-02 01:17] LABS: Alanine Aminotransferase 8 Units/L (7-52); Albumin 3.4 g/dL (3.5-5.7); Albumin/Globulin Ratio 1.2 (1.1-2.2); Alkaline Phosphatase 79 Units/L (34-104); Aspartate Amino Transferase 12 Units/L (13-39); BUN/Creatinine Ratio 15 (6-26); Bilirubin,Total 1.5 mg/dL (0.3-1.0); Blood Urea Nitrogen 11 mg/dL (8-23); Calcium 9.8 mg/dL (8.6-10.3); Carbon Dioxide 23 mEq/L (23-29); Chloride 105 mEq/L (98-107); Chol/HDL Ratio 2.4 (0-4.9); Cholesterol 110 mg/dL (< 200); Globulin 2.8 g/dL (2.4-3.5); Glucose 153 mg/dL (70-105); HDL Cholesterol 46 mg/dL (40-59); LDL Cholesterol,Calculated 51 mg/dL (0-99); Magnesium 1.7 mg/dL (1.6-2.6); Osmolality,Calculated 282 (280-300); Phosphorous 1.8 mg/dL (2.7-4.5); Potassium 3.5 mEq/L (3.5-5.1); Sodium 135 mEq/L (136-145); Total Protein 6.2 g/dL (6.4-8.9); Triglycerides 65 mg/dL (< 150); Troponin I < 0.03 ng/mL (< 0.04); eGFR For African Americans > 60 (> 60); eGFR For Non-African Americans > 60 (> 60)
[2018-10-02 05:56] LABS: INR 4.3
[2018-10-02 05:59] LABS: Activated Partial Thrombo Time 61.3 Seconds (26.0-36.0)
[2018-10-02 06:05] LABS: Prothrombin Time 48.4 Seconds (9.4-12.1)
[2018-10-02] MEDS: Ranolazine 500 MG TAB.ER.12H PO SCH (07:47)
[2018-10-02] MEDS: Insulin LISPRO 300 UNITS/3 ML VIAL SQ SCH ×2 (07:58→11:19)
[2018-10-02] MEDS ORDERED: Aspirin Enteric Coated 81 MG Tablet PO SCH (09:00)
[2018-10-02] MEDS ORDERED: amLODIPine 5 MG TABLET PO SCH (09:00)
[2018-10-02] MEDS ORDERED: Cholecalciferol (D-3) 1,000 UNIT (25MCG) TABLET PO SCH (09:00)
[2018-10-02] MEDS ORDERED: Torsemide 20 MG TABLET PO SCH (09:00)
[2018-10-02] MEDS ORDERED: Isosorbide MONOnitrate (24 HR) 60 MG TAB.ER.24H PO SCH (09:00)
[2018-10-02 10:59] VITALS: BP 143/79
--- NOTE | 2018-10-02 11:11 | Discharge Summary ---
- NOTES TO OUTPATIENT PROVIDER Notes to Outpatient Provider: Patient presented with sudden onset chest pain. CTA, CXR and Troponins were normal. EKG showed afib nonspecidic ST-T changes. ECHO showed EF 55%. Date of Encounter: 10/02/18 Time of Encounter: 08:20 - Discharge Diagnosis (1) Chest pain Priority: Primary Status: Acute Qualifiers: Chest pain type: other chest pain Qualified Code(s): R07.89 - Other chest pain; R07.8 - Other chest pain (2) CAD (coronary artery disease) Priority: Secondary Status: Chronic Qualifiers: Coronary Disease-Associated Artery/Lesion type: [place] artery [place] vs. transplanted heart: [place] heart Associated angina: with unstable angina Qualified Code(s): I25.110 - Atherosclerotic heart disease of [place] coronary artery with unstable angina pectoris (3) Diabetes Priority: Secondary Status: Chronic Qualifiers: Diabetes mellitus type: type 2 Diabetes mellitus supervisor intermediates insulin use: with supervisor intermediates use Diabetes mellitus complication status: without complication Qualified Code(s): E11.9 - Type 2 diabetes mellitus without complications; Z79.4 - custodial (current) use of insulin (4) Hyperlipidemia Priority: Secondary Status: Chronic Qualifiers: Hyperlipidemia type: pure hypercholesterolemia Qualified Code(s): E78.00 - Pure hypercholesterolemia, unspecified; E78.0 - Pure hypercholesterolemia (5) Atrial fibrillation Priority: Secondary Status: Chronic Qualifiers: Atrial fibrillation type: chronic Qualified Code(s): I48.2 - Chronic atrial fibrillation (6) HTN (hypertension) Priority: Secondary Status: Chronic Qualifiers: Hypertension type: essential hypertension Qualified Code(s): I10 - Essential (primary) hypertension (7) Coagulopathy Priority: Secondary Status: Acute Hospital course: Ms. Renae is a 78 year old female with a PMHx of A. fib on Coumadin, diabetes, fibromyalgia, hyperlipidemia and hypertension who presented with sudden onset pressure-like chest pain radiating to her back without aggravating or relieving factors. CTA, CXR and Troponins are negative. Patient is currently asymptomatic and is willing to go home. ECHO showed an EF 55%,normal LV chamber size and fxn. Mild concentric left ventricular hypertrophy, indeterminate diastolic function, normal right ventricuar structure and function.Mild aortic regurgitation. Mild-moderate tricuspid regurgitation. Mild pulmonary HTN. Discharge discussed with: patient, family, nurse - Time Spent with Patient Total time spent providing and/or coordinating discharge services: Time spent: Greater than 30 minutes (35) - Discharge Medications Prescriptions: Continued Isosorbide MONOnitrate (24 HR) [Imdur] 60 mg PO DAILY amLODIPine [Norvasc] 10 mg PO DAILY tablet Atorvastatin [Lipitor] 40 mg PO HS tablet Nitroglycerin 0.4 mg SL Q5M PRN tab.subl PRN Reason: Chest Pain Levothyroxine [Synthroid] 50 mcg PO QAM tablet Allopurinol [Zyloprim 100 MG] 100 mg PO DAILY tablet Losartan Potassium [Cozaar] 100 mg PO DAILY Metoprolol [Lopressor] 50 mg PO BID Warfarin [Coumadin] 5 mg PO SUTUTHSA Torsemide [Demadex] 10 mg PO DAILY Aspirin Enteric Coated [Aspirin EC] 2 tab PO DAILY Cholecalciferol (Vitamin D3) [Vitamin D3] 5,000 unit PO DAILY Ranolazine [Ranexa] 500 mg PO BID #60 tab.er.12h Warfarin Sodium 2.5 mg PO MOWEFR Insulin Glargine,Hum.rec.anlog [Lantus Solostar] 23 unit SQ BID Albuterol Sulfate [Proventil Inhaler] 2 puff IH Q4H PRN PRN Reason: Shortness Of Breath Home Medications: Allopurinol [Zyloprim 100 MG] 100 mg PO DAILY tablet 12/06/16 [Rx] Atorvastatin [Lipitor] 40 mg PO HS tablet 12/06/16 [Rx] Isosorbide MONOnitrate (24 HR) [Imdur] 60 mg PO DAILY 12/06/16 [History] Levothyroxine [Synthroid] 50 mcg PO QAM tablet 12/06/16 [Rx] Nitroglycerin 0.4 mg SL Q5M PRN tab.subl 12/06/16 [Rx] amLODIPine [Norvasc] 10 mg PO DAILY tablet 12/06/16 [Rx] Losartan Potassium [Cozaar] 100 mg PO DAILY 01/24/17 [History] Metoprolol [Lopressor] 50 mg PO BID 01/24/17 [History] Aspirin Enteric Coated [Aspirin EC] 2 tab PO DAILY 09/07/18 [History] Cholecalciferol (Vitamin D3) [Vitamin D3] 5,000 unit PO DAILY 09/07/18 [History] Ranolazine [Ranexa] 500 mg PO BID #60 tab.er.12h 09/07/18 [Rx] Torsemide [Demadex] 10 mg PO DAILY 09/07/18 [History] Warfarin [Coumadin] 5 mg PO SUTUTHSA 09/07/18 [History] Albuterol Sulfate [Proventil Inhaler] 2 puff IH Q4H PRN 10/01/18 [History] Insulin Glargine,Hum.rec.anlog [Lantus Solostar] 23 unit SQ BID 10/01/18 [History] Warfarin Sodium 2.5 mg PO MOWEFR 10/01/18 [History] Allergies/Adverse Reactions: Allergy/AdvReac Type Severity Reaction Status Date / Time cephalexin [From Keflex] Allergy Hives Verified 10/01/18 04:47 levofloxacin [From Levaquin] Allergy Anaphylaxis Verified 10/01/18 04:47 promethazine AdvReac See Verified 10/01/18 04:47 Comments Date of admission: 10/01/18 07:34 Primary care physician: Aimee Mcpherson CNP - Constitutional Vitals: Temp Pulse Resp BP Pulse Ox 36.8 C 70 17 143/79 95 10/02/18 10:58 10/02/18 10:58 10/02/18 10:58 10/02/18 10:58 10/02/18 10:58 General appearance: Present: A&O X 3 Exam: GENERAL: Not in distress. Alert and Oriented HEENT: EOMI, PERRLA MOUTH: Moist oral mucosa. NECK:No JVD, No lymph nodes. CHEST AND LUNGS: Normal breath sounds, no wheezes or crackles HEART: S1 and S2 normal, no murmurs ABDOMEN: Soft, nontender, no organomegaly SKIN: Normal color, no rahses, no lesions EXTREMITIES: No deformity, no edema, no tenderness, no joint swelling or clubbing NEUROLOGICAL: Normal cognition, normal motor and sensory exam. - Patient Status Disposition: Home, Self-Care Condition: Good Functional capacity at discharge: independent ambulation Overall status at discharge: patient is back to baseline - Discharge Instructions Follow Up With: Aimee Mcpherson CNP [Primary Care Provider] - - Diet and Activity Activity: resume usual activities as tolerated Diet: advance to your usual diet, diabetic diet, low salt diet
--- NOTE | 2018-10-02 15:47 | Electrocardiograph Report ---
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
== END 2018-10-02 12:16 | disposition home or self-care (01) ==
LOC: 2ANU 04:09 → EMEROOARM 04:09 → SUATTDRO 07:34 → 2ANU 08:23
PROVIDERS: ADMIT Family Medicine; ATTEND Internal Medicine

== ENCOUNTER 2021-01-28 15:38 | Observation (INO) ==
[2021-01-28] MEDS ORDERED: D5% in Water 1,000 ML IVC PRN (17:41)
[2021-01-28] MEDS ORDERED: Ondansetron 4 MG/2 ML VIAL IVP PRN (17:41)
[2021-01-28] MEDS ORDERED: Naloxone 0.4 MG/ML INJ IVP PRN (17:41)
[2021-01-28] MEDS ORDERED: Dextrose Gel 15 GM/37.5 ML TUBE PO PRN ×2 (17:41)
[2021-01-28] MEDS ORDERED: Acetaminophen 325 MG TABLET PO PRN (17:41)
[2021-01-28] MEDS ORDERED: *HR* Dextrose 50 % in Water (Syg) 50 ML SYRINGE IVP PRN (17:41)
[2021-01-28] MEDS ORDERED: *HR* HYDROcodone/Acet 5/325 mg TABLET PO PRN (17:41)
[2021-01-29 06:49] LABS: Bacteria,Urine Few per hpf (None-Few); Bilirubin,Urine Negative (Negative); Blood,Urine Negative (Negative); Clarity,Urine Clear (Clear); Color,Urine Yellow (Yellow); Glucose,Urine (UA) 500 mg/dL (Normal); Ketones,Urine Negative (Negative); Leukocyte Esterase,Urine Large (Negative); Mucus,Urine Few per lpf (None-Few); Nitrite,Urine Negative (Negative); Protein,Urine 70 mg/dL (Neg-Trace); RBC,Urine 0-3 per hpf (0-3); Specific Gravity,Urine 1.017 (1.010-1.025); Squamous Epithelial Cell,Urine Few per hpf (None-Few); Urobilinogen,Urine Normal (Normal); WBC,Urine 50-100 per hpf (0-3)
[2021-01-29 07:04] VITALS: BP 122/58; PULSE 59; TEMP 97.8; O2SAT 96
[2021-01-29] MEDS ORDERED: Insulin LISPRO 300 UNITS/3 ML VIAL SUBQ SCH (07:30)
[2021-01-29 07:52] LABS: Alanine Aminotransferase 9 Units/L (7-52); Albumin 3.6 g/dL (3.5-5.7); Albumin/Globulin Ratio 1.4 (1.1-2.2); Alkaline Phosphatase 84 Units/L (34-104); Aspartate Amino Transferase 17 Units/L (13-39); BUN/Creatinine Ratio 21 (6-26); Bilirubin,Direct 0.3 mg/dL (0.0-0.2); Bilirubin,Indirect 1.2 mg/dL (0.0-1.0); Bilirubin,Total 1.5 mg/dL (0.3-1.0); Blood Urea Nitrogen 20 mg/dL (8-23); Calcium 9.8 mg/dL (8.6-10.3); Carbon Dioxide 28 mEq/L (23-29); Chloride 100 mEq/L (98-107); Chol/HDL Ratio 3.2 (0-4.9); Cholesterol 109 mg/dL (< 200); Globulin 2.5 g/dL (2.4-3.5); Glucose 227 mg/dL (70-105); HDL Cholesterol 34 mg/dL (40-59); LDL Cholesterol,Calculated 51 mg/dL (< 100); Osmolality,Calculated 292 (280-300); Potassium 3.1 mEq/L (3.5-5.1); Sodium 136 mEq/L (136-145); Total Protein 6.1 g/dL (6.4-8.9); Triglycerides 119 mg/dL (< 150); eGFR For African Americans > 60 (> 60); eGFR For Non-African Americans 57 (> 60)
[2021-01-29 07:56] LABS: Basophils # 0.1 K/mcL (0.0-0.2); Basophils % 1.2 %; Eosinophils # 0.2 K/mcL (0.0-0.6); Eosinophils % 2.6 %; Hematocrit 38.3 % (35.3-44.9); Immature Granulocytes % 0.3 % (0-4); Lymphocytes % 25.7 %; Mean Corpuscular HGB Conc 31.3 g/dL (31.6-35.5); Mean Corpuscular Hemoglobin 26.8 pg (28.0-33.3); Mean Corpuscular Volume 85.5 fL (83.0-100.0); Mean Platelet Volume 10.1 fL (9.4-12.4); Monocytes # 0.8 K/mcL (0.0-1.3); Monocytes % 10.4 %; Neutrophils # 4.6 K/mcL (1.6-8.9); Platelet Count 219 K/mcL (140-400); Red Blood Count 4.48 M/mcL (3.82-4.97); Red Cell Distribution Width 14.1 % (11.5-14.5); Segmented Neutrophils % 59.8 %; White Blood Count 7.6 K/mcL (4.3-11.1)
[2021-01-29 08:04] LABS: INR 2.2; Prothrombin Time 24.7 Seconds (9.4-12.1)
[2021-01-29 08:07] LABS: Activated Partial Thrombo Time 45.9 Seconds (26.0-36.0)
[2021-01-29] MEDS ORDERED: Cholecalciferol (D-3) 1,000 UNIT (25MCG) TABLET PO SCH (09:00)
[2021-01-29] MEDS ORDERED: Isosorbide MONOnitrate (24 HR) 60 MG TAB.ER.24H PO SCH (09:00)
[2021-01-29] MEDS ORDERED: Isosorbide MONOnitrate (24 HR) 30 MG TAB.ER.24H PO SCH (09:00)
[2021-01-29] MEDS ORDERED: Furosemide 40 MG TABLET PO SCH (09:00)
[2021-01-29] MEDS ORDERED: allopurinoL 100 MG TABLET PO SCH (09:00)
== END 2021-01-29 11:52 | disposition home or self-care (01) ==
LOC: 2ANU → SUATTDRO 17:11
PROVIDERS: ADMIT Internal Medicine; ATTEND Internal Medicine